=== PATIENT | male | born 1995 | race Caucasian/White ===

== ENCOUNTER 2020-08-19 17:28 | Outpatient (REF) | payer OTHER, SELFPAY | END 2020-08-19 17:29 | disposition home or self-care (01) | LOC: HO.LAB 17:28 | PROVIDERS: Visit Provider Internal Medicine | DX: Z20.828 Contact with and (suspected) exposure to other viral communicable diseases (principal) | CPT/HCPCS: C9803; U0003 ==

== ENCOUNTER 2021-04-05 22:13 | Outpatient (REF) | payer OTHER, SELFPAY ==
[2021-04-05 23:11] LABS: COVID-19 Test Negative (Negative)
== END 2021-04-05 22:14 | disposition home or self-care (01) ==
LOC: HO.LAB 22:13
PROVIDERS: Visit Provider Internal Medicine
DX: Z20.822 Contact with and (suspected) exposure to COVID-19 (principal)
CPT/HCPCS: 36415; 87635

== ENCOUNTER 2021-04-11 19:42 | Outpatient (REF) | payer OTHER, SELFPAY ==
[2021-04-11 22:12] LABS: COVID-19 Test Negative (Negative)
== END 2021-04-11 19:43 | disposition home or self-care (01) ==
LOC: HO.LAB 19:42
PROVIDERS: Visit Provider Internal Medicine
DX: Z20.822 Contact with and (suspected) exposure to COVID-19 (principal)
CPT/HCPCS: 36415; 87635

== ENCOUNTER 2021-08-16 15:18 | Outpatient (REF) | payer OTHER, SELFPAY ==
[2021-08-16 16:07] LABS: COVID-19 Test Negative (Negative)
== END 2021-08-16 15:19 | disposition home or self-care (01) ==
LOC: HO.LAB 15:18
PROVIDERS: Visit Provider Internal Medicine
DX: Z20.822 Contact with and (suspected) exposure to COVID-19 (principal)
CPT/HCPCS: 36415; 87635; C9803

== ENCOUNTER 2025-05-18 14:01 | Outpatient (REF) | payer OTHER, SELFPAY ==
--- NOTE | ~2025-05-18 | XR_ITS ---
EXAMINATION: XR SHOULDER, LEFT CLINICAL INFORMATION: M25.512 - Pain in left shoulder COMPARISON: None available. TECHNIQUE: AP external rotation, Grashey, scapular Y, and axillary views of the left shoulder. FINDINGS: No acute cortical disruption or malalignment. No gross soft tissue calcification. There is a 5 mm calcification at the lesser tuberosity of the humerus. XR/XR shoulder LT min 2V IMPRESSION: No acute fracture or dislocation. Probable bony island, left humerus. Electronically signed by: Stoney Posadas MD 05/18/2025 02:34 PM EDT
== END 2025-05-18 14:02 | disposition home or self-care (01) ==
LOC: HO.XRAY 14:01
PROVIDERS: Visit Provider Physician Assistant Medical
DX: M25.512 Pain in left shoulder (principal); M25.612 Stiffness of left shoulder, not elsewhere classified; S49.92XA Unspecified injury of left shoulder and upper arm, initial encounter
CPT/HCPCS: 73030

== ENCOUNTER → 2025-05-18 14:07 | Outpatient (BNV) | payer OTHER, SELFPAY | PROVIDERS: Visit Provider Radiology Diagnostic Radiology | DX: M25.512 Pain in left shoulder (principal) | CPT/HCPCS: 73030 ==

== ENCOUNTER 2025-05-21 12:06 | Outpatient (REF) | payer OTHER, SELFPAY ==
[2025-05-21 13:28] LABS: MANUAL DIFF FLAG NO
[2025-05-21 13:37] LABS: Hematocrit 46.5 % (42.0-52.0); Hemoglobin 15.9 g/dl (14.0-18.0); Imm Gran Abs Auto 0.01 X10*3/uL (0.00-0.03); Imm Gran Pct Auto 0.2 % (0.0-0.4); Lymphocytes Absolute Auto 1.7 X10*3/uL (1.2-4.9); Mean Corpuscular HGB Conc 34.2 g/dl (31.0-36.0); Mean Corpuscular Hemoglobin 30.6 pg (27.0-33.0); Mean Corpuscular Volume 89.4 fL (80.0-98.0); NRBC Abs Auto 0.000 X10*3/uL (0.0-0.012); NRBC Pct Auto 0.0 /100WBC (0.0-0.2); Platelet Count 168 X10*3/uL (160-400); Red Blood Count 5.20 X10*6/uL (4.60-5.80); White Blood Count 4.3 X10*3/uL (4.8-10.8)
[2025-05-21 13:58] LABS: Total Hemoglobin (HGBA1C) 4149.7549 umol/L
[2025-05-21 14:19] LABS: Alanine Aminotransferase 78 U/L (0-40); Albumin Level 5.2 g/dL (3.5-5.0); Alkaline Phosphatase 61 U/L (39-117); Anion Gap 15 (12-20); Aspartate Amino Transferase 40 U/L (5-37); Blood Urea Nitrogen 13 mg/dL (9-16); Calcium 9.7 mg/dL (8.4-10.2); Carbon Dioxide 27 mmol/L (22-29); Chloride 103 mmol/L (96-108); Cholesterol 206 mg/dL (<200); Estimated Glomerular Filt Rate > 60; HDL Cholesterol 48 mg/dL (>40); Magnesium 2.1 mg/dL (1.6-2.6); Potassium 3.7 mmol/L (3.3-5.1); Sodium 141 mmol/L (135-145); Total Protein 7.7 g/dL (6.5-8.0); Triglycerides 90 mg/dL (<150)
[2025-05-21 14:34] LABS: PSA,Total (Free>4and<10) 0.79 ng/mL (0.00-4.00)
[2025-05-21 14:47] LABS: Folate 10.9 ng/mL (> or = 4.0); Vitamin B12 360 pg/mL (200-900)
[2025-05-27 16:53] LABS: Testosterone, Free 88.6 pg/mL (35.0-155.0)
== END 2025-05-21 12:07 | disposition home or self-care (01) ==
LOC: HO.HMGCLDS 12:06
PROVIDERS: PCP Physician Assistant Medical; Visit Provider Physician Assistant Medical
DX: Z12.5 Encounter for screening for malignant neoplasm of prostate (principal); Z00.00 Encounter for general adult medical examination without abnormal findings; S43.402A Unspecified sprain of left shoulder joint, initial encounter; S46.009A Unspecified injury of muscle(s) and tendon(s) of the rotator cuff of unspecified shoulder, initial encounter; Y99.0 Civilian activity done for income or pay
CPT/HCPCS: 36415; 80053; 80061; 80076; 82248; 82306; 82607; 82627; 82642; 82746; 83036; 83735; 84153; 84402; 84403; 85025; 86140; 96127

== ENCOUNTER 2025-05-21 12:44 | Outpatient (AMB) | payer OTHER, SELFPAY ==
[2025-05-21 12:53] VITALS: BP 135/76; PULSE 73; RESP 16; TEMP 37; O2SAT 99; BMI 25.9
--- NOTE | 2025-05-21 12:53 | MHC.PC.OV ---
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 Accompanied by: Self / Same As Patient Allergies vancomycin Allergy (Mild, Verified 05/21/25 16:58) Hives Medication List - Last Reconciled 05/21/25 by Krystal Ugalde PA-C albuterol sulfate 90 mcg/actuation 2 puffs inhalation Q6H PRN Tobacco use date assessed: 10/03/21 Dental Screening Dental Screen Date: 05/21/25 Did you have a dental problem in the last 6 months where you did not have access to dental care?: No Was dental information given to patient?: Patient has dentist HPI Establish Care HPI Details The patient is a 29-year-old male presenting with left shoulder pain due to a work-related injury. The injury occurred on May 17 while the patient was pulling a hose and experienced a tweak in the left shoulder. The patient continued working, which resulted in a re-tweak of the shoulder while packing the hose. Since the incident, the patient reports decreased strength in the left arm, inability to lift weights, and a sensation of impingement in the shoulder area. The patient also experiences intermittent numbness and weakness in the arm, with pain rated at 8 to 10 out of 10 during episodes of impingement. The patient describes a sensation of swelling and discomfort, particularly when attempting to move the shoulder. Claim number [id number] Incident number [id number] Social History - Employment: [employer] [facility] Medical History (Updated 05/21/25 @ 17:02 by Krystal Ugalde PA-C) Rotator cuff injury Sprain of left shoulder Injury of left shoulder Decreased range of motion of left shoulder Work related injury Left shoulder pain Asthma Generalized anxiety disorder Surgical History History of hand surgery Family History Mother Diabetes Father Heart problem Social History Housing: House Alcohol intake: current Alcohol intake frequency: does not drink Patient Tobacco Use Status: Never used Tobacco e-Cigarette/Vaping Use: Never Used Second Hand Smoke Exposure: No service: No Current occupational status: employed Cognitive needs: No Hearing needs: No Vision needs: Yes (glasses) Questionnaire PHQ-9 Over the last 2 weeks, how often have you been bothered by any of the following problems? 1. Little interest or pleasure in doing things: not at all 2. Feeling down, depressed, or hopeless: not at all 3. Trouble falling or staying asleep, or sleeping too much: not at all 4. Feeling tired or having little energy: not at all 5. Poor appetite or overeating: not at all 6. Feeling bad about yourself - or that you are a failure or have let yourself or your family down: not at all 7. Trouble concentrating on things, such as reading the newspaper or watching television: not at all 8. Moving or speaking so slowly that other people could have noticed. Or the opposite - being so fidgety or restless that you have been moving around a lot more than usual: not at all 9. Thoughts that you would be better off or of hurting yourself in some way: not at all Total score: 0 Depression Screening Interpretation: Negative Depression Screening Done: Yes Source: Developed by Drs. Sajan Wade, Anne March, Guilherme Lundberg and colleagues, with an educational hollie from [employer]. Thrive Questionnaire Date Thrive assessed: 09/23/24 I am a: Patient What is your living situation today?: I have a steady place to live Within the past 12 months, did the food you bought not last and you didn't have the money to get more?: Never true Within the past 12 months, did you worry whether your food would run out before you got money to buy more?: Never true Do you have trouble paying for medicines?: No Do you have trouble getting transportation to medical appointments?: No Do you have trouble paying your heating and electricity bill?: No Do you have trouble taking care of your child, family member or friend?: No Do you have trouble with day-to-day activities such as bathing, preparing meals, shopping, managing finances, etc.?: No Are you currently unemployed and looking for a job?: No Are you interested in more education?: No Please select the resources that you would like help with: None Currently or been in a relationship where the following occur: No concerns reported THRIVE Score: 0 AUDIT C Alcohol Use Questionnaire (AUDIT-C) 1. How often do you have a drink containing alcohol?: Never 3. How often do you have six or more drinks on one occasion?: Never Total Score: 0 Score Reviewed/Action Taken: No RAMONE-7 AMB Questionnaire RAMONE-7 Date RAMONE - 7 assessed: 05/21/25 Feeling nervous, anxious, or on edge: 0 = Not at all Not being able to stop or control worryin = Not at all Worrying too much about different things: 0 = Not at all Trouble relaxin = Not at all Being so restless that it is hard to sit still: 0 = Not at all Becoming easily annoyed or irritable: 0 = Not at all Feeling afraid as if something awful might happen: 0 = Not at all Total RAMONE-7 score (0-4 normal; 5-9 mild; 10-14 moderate; 15-21 severe): 0 Source: Developed by Drs. Sajan Wade, Anne March, Guilherme Lundberg and colleagues, with an educational hollie from [employer]. RAMONE-7 Assessment Billing RAMONE-7 Assessment Tool: RAMONE-7 Assessment 77785 Review of Systems Const Details: - Musculoskeletal: Reports decreased strength in left arm, inability to lift weights, sensation of impingement, intermittent numbness, and weakness. Denies dropping objects. - Neurological: Reports intermittent numbness in left arm. Denies dropping objects. All systems reviewed & are unremarkable except as noted in HPI and below Physical exam (Primary Care) Vital Signs: Last Vital Signs Temp 98.6 F 05/21/25 12:53 Pulse 73 05/21/25 12:53 Resp 16 05/21/25 12:53 BP 135/76 05/21/25 12:53 Pulse Ox 99 05/21/25 12:53 Oxygen Delivery Method Room Air 05/21/25 12:53 Care Plan Goal for BP management: <140/90 BMI result Body Mass Index 25.9 BMI Assessment/Plan discussion: High BMI High, discussed plan: lifestyle, weight reduction, dietary, physical activity, alcohol moderation and other Tobacco/Smoking Status: Tobacco use Status Tobacco use date assessed 10/03/21 05/21/25 13:02 Patient Tobacco Use Status Never used Tobacco 05/21/25 13:02 e-Cigarette/Vaping Use Never Used 05/21/25 13:02 PHQ-9: PHQ-9 Score PHQ-9: Total score 0 05/21/25 13:02 Depression Screening Interpretation: Negative Thrive Assessment: Date of Thrive Assessment Date Thrive assessed 09/23/24 05/21/25 13:02 Currently or been in a relationship where the following occur: No concerns reported Const Other: Appearance: Alert. Oriented X3. No acute distress. Head: Normal external exam. Normocephalic. Atraumatic. Eyes: Pupils are equal, round, and reactive to light. Extraocular movements intact. Conjunctiva and sclera normal. Eyelids normal. Throat: Pharynx normal. Uvula midline. Moist mucous membranes. Neck: Normal inspection. Neck supple. Full range of motion. Cardiovascular: Normal heart rate and rhythm. Heart sound normal. No murmurs noted. Pulses normal throughout. Respiratory: No respiratory distress. Painless inspiration. Breath sounds normal. No wheezes/rales/rhonchi noted. Chest nontender. No accessory muscle usage noted or decreased air movement noted. Back: Full range of motion noted. Skin: Skin warm and dry. Normal skin color. Normal skin turgor. No rashes/lesions/lacerations noted. Extremities: Decreased range of motion to the left AC joint. Left shoulder pain with decreased strength and sensation of swelling. There is no pitting edema. Normal pulses. Normal capillary refill. Right extremities exhibit normal range of motion. All other extremities other than left shoulder joint exhibit normal range of motion and nontender. Neuro: Oriented X 3. Results Reviewed Results Reviewed: - Imaging: X-ray of left shoulder on 05/18/2025 showed no acute fracture or dislocation, probable bone island in left humerus. Coding Level of Care Code New Pt Level 4 (56213) Complex EM visit Add On G2211 Diagnoses Work related injury Y99.0 Sprain of left shoulder S43.402A Rotator cuff injury S46.009A Additional Codes RAMONE-7 Assessment Billing - RAMONE-7 Assessment Tool: RAMONE-7 Assessment 33085 ([id number]) Assessment & Plan Assessment & Plan (1) Work related injury: Code(s): Y99.0 - Civilian activity done for income or pay Category: Medical (2) Sprain of left shoulder: Code(s): S43.402A - Unspecified sprain of left shoulder joint, initial encounter Category: Medical Plan: The patient will be scheduled for an MRI to further evaluate the shoulder injury. Physical therapy will be initiated to aid in recovery, and an orthopedic follow-up is planned. The patient is advised to remain out of work with full restrictions until the MRI and orthopedic evaluation are completed, estimated to be at least three months. (3) Rotator cuff injury: Code(s): S46.009A - Unspecified injury of muscle(s) and tendon(s) of the rotator cuff of unspecified shoulder, initial encounter Category: Medical Plan: The patient will undergo an MRI to assess the extent of the rotator cuff injury. Physical therapy is recommended to improve shoulder function, and an orthopedic consultation is scheduled. The patient is to remain off work with full restrictions pending further evaluation and treatment. Plan Plan Patient was informed and verbally consented to the use of an ambient scribe for clinic note documentation during this visit. 1. Left Shoulder Sprain The patient will be scheduled for an MRI to further evaluate the shoulder injury. Physical therapy will be initiated to aid in recovery, and an orthopedic follow-up is planned. The patient is advised to remain out of work with full restrictions until the MRI and orthopedic evaluation are completed, estimated to be at least three months. 2. Rotator Cuff Injury The patient will undergo an MRI to assess the extent of the rotator cuff injury. Physical therapy is recommended to improve shoulder function, and an orthopedic consultation is scheduled. The patient is to remain off work with full restrictions pending further evaluation and treatment. 3. Probable Bone Island In Left Humerus The bone island noted on the X-ray will be monitored, and further evaluation will be conducted if necessary. I discussed with the patient the likely diagnosis of a left shoulder sprain and potential rotator cuff injury. We reviewed the plan for an MRI, physical therapy, and orthopedic follow-up. The patient was informed about the need to remain out of work with full restrictions until further evaluation, which is expected to take at least three months. Orders: Orders Comprehensive [place]vell. Panel Fast Today Z00.00 - Encounter for general adult medical examination without abnormal findings Lipid Panel Today Z00.00 - Encounter for general adult medical examination without abnormal findings Vitamin B12 and Folate Today Z00.00 - Encounter for general adult medical examination without abnormal findings Vitamin D 25-OH Total Today Z00.00 - Encounter for general adult medical examination without abnormal findings DHEA Sulfate Today Z00.00 - Encounter for general adult medical examination without abnormal findings MR shoulder LT wo con Today M25.512 - Pain in left shoulder, M25.612 - Stiffness of left shoulder, not elsewhere classified, S49.92XA - Unspecified injury of left shoulder and upper arm, initial encounter, Y99.0 - Civilian activity done for income or pay XR shoulder LT min 2V 05/18/25 M25.512 - Pain in left shoulder, M25.612 - Stiffness of left shoulder, not elsewhere classified, S49.92XA - Unspecified injury of left shoulder and upper arm, initial encounter, Y99.0 - Civilian activity done for income or pay C Reactive Protein Today Z00.00 - Encounter for general adult medical examination without abnormal findings Complete Blood Count Auto Diff Today Z00.00 - Encounter for general adult medical examination without abnormal findings Hemoglobin A1c Today Z00.00 - Encounter for general adult medical examination without abnormal findings Liver Panel Today Z00.00 - Encounter for general adult medical examination without abnormal findings Magnesium Today Z00.00 - Encounter for general adult medical examination without abnormal findings Testosterone, Free/Total Today Z00.00 - Encounter for general adult medical examination without abnormal findings Dihydrotestosterone Today Z00.00 - Encounter for general adult medical examination without abnormal findings PSA,Total (Free>4and<10) Today Z00.00 - Encounter for general adult medical examination without abnormal findings Referrals Orthopedics Referral M25.512 - Pain in left shoulder, M25.612 - Stiffness of left shoulder, not elsewhere classified, S49.92XA - Unspecified injury of left shoulder and upper arm, initial encounter, Y99.0 - Civilian activity done for income or pay Patient Instructions: - Schedule and attend MRI appointment as directed. - Begin physical therapy sessions as recommended. 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 - Remain out of work with full restrictions until cleared by healthcare providers.
== END 2025-05-21 14:53 | disposition home or self-care (01) ==
LOC: HO.HMCSH 12:44
PROVIDERS: PCP Physician Assistant Medical; Visit Provider Physician Assistant Medical
DX: S43.402A Unspecified sprain of left shoulder joint, initial encounter (principal); S46.002A Unspecified injury of muscle(s) and tendon(s) of the rotator cuff of left shoulder, initial encounter

== ENCOUNTER → 2025-06-09 14:14 | Outpatient (BNV) | payer OTHER, SELFPAY | PROVIDERS: PCP Physician Assistant Medical; Visit Provider Radiology Diagnostic Radiology | DX: M75.32 Calcific tendinitis of left shoulder (principal); M75.112 Incomplete rotator cuff tear or rupture of left shoulder, not specified as traumatic | CPT/HCPCS: 73221 ==

== ENCOUNTER 2025-06-09 14:19 | Outpatient (REF) | payer OTHER, SELFPAY ==
--- NOTE | ~2025-06-09 | MR_ITS ---
EXAMINATION: MRI Shoulder without contrast, left TECHNIQUE: Multiplanar multisequence MR imaging through an upper extremity joint without contrast. INDICATION: Left shoulder pain and stiffness, decreased range of motion, weakness, numbness, pulling injury 05/17/2025 PRIOR: X-ray 05/18/2025 FINDINGS: Rotator Cuff: 11 mm low signal focus is present within lateral inferior infraspinatus tendon with faint peripheral edema consistent with hydroxyapatite crystal deposition. There is a short intrasubstance tear in super space tendon at the footprint not extending to the deep bursal surface and involving less than half the tendon thickness (coronal T2 fat-sat image 13). Labrum: Labrum is intact Long biceps tendon: The long biceps tendon is intact and not displaced from the groove. Acromioclavicular joint: AC joint is not degenerated and intact. Acromial morphology is mildly curved, type II. There is no subacromial subdeltoid effusion, though there is trace fluid in the bursa. Axillary pouch: The axillary pouch is intact. Articular cartilage: There are no articular cartilage defects. Bones/Marrow: Mild focal reactive marrow signal is present in greater tuberosity adjacent the intrasubstance tear within supraspinatus tendon. Soft tissues: Subtle edema is present throughout teres minor muscle and mild fatty streaking. There is no quadrilateral space mass or abnormality. MR/MR shoulder LT wo con IMPRESSION: Infraspinatus calcific tendinitis. Subtle teres minor muscle edema and mild fatty streaking is consistent with viral neuritis or quadrilateral space syndrome. This is often symptomatic. There is a small focal linear intrasubstance tear at the supraspinatus footprint involving less than half the tendon thickness. Electronically signed by: Marco Agrawal MD 06/09/2025 03:06 PM EDT
[2025-06-09 16:29] LABS: Appearance Urine Clear; Glucose Urine UA Negative (Negative); PH 7.0 (5.0-9.0); Specific Gravity - Urine <= 1.005 (1.005-1.025)
[2025-06-10 06:20] LABS: HBS Num1 > 1000.00 mIU/mL (0-7.99); HBc Num1 0.04 S/CO (0.00-0.79); HBsAGNum1 0.40 S/CO (0.00-0.99); HIV Num 1 0.05 S/CO (0.00-0.99); Hepatitis A Antibody IgM 0.14 Index (0-0.79); Hepatitis B Surface Antigen Negative (Negative); ~HepC Num1 0.07 S/CO (0.00-0.79); ~Hepatitis A Antibody IgM Nonreactive (Nonreactive); ~Hepatitis B Surface Antibody REACTIVE (Nonreactive); ~Hepatitis C Antibody Nonreactive (Nonreactive)
[2025-06-10 10:01] LABS: CT PCR Urine NOT DETECTED (Not Detect.); NG PCR Urine NOT DETECTED (Not Detect.)
== END 2025-06-09 14:20 | disposition home or self-care (01) ==
LOC: HO.MRI 14:19
PROVIDERS: PCP Physician Assistant Medical; Visit Provider Physician Assistant Medical
DX: M25.612 Stiffness of left shoulder, not elsewhere classified (principal); S49.92XA Unspecified injury of left shoulder and upper arm, initial encounter; M25.512 Pain in left shoulder; Z00.00 Encounter for general adult medical examination without abnormal findings
CPT/HCPCS: 73221; 81003; 86592; 86695; 86696; 86704; 86706; 86709; 86803; 87340; 87389; 87491; 87591

== ENCOUNTER 2025-06-14 15:35 | Outpatient (REF) | payer OTHER, SELFPAY ==
[2025-06-16 03:33] LABS: Trichomonas vag. RNA Ur Male NOT DETECTED (NOT DETECTED)
== END 2025-06-14 15:36 | disposition home or self-care (01) ==
LOC: HO.LAB 15:35
PROVIDERS: PCP Physician Assistant Medical; Visit Provider Physician Assistant Medical
DX: Z00.00 Encounter for general adult medical examination without abnormal findings (principal)
CPT/HCPCS: 36415; 86695; 86696; 87661

== ENCOUNTER 2025-06-15 13:14 | Outpatient (REF) | payer OTHER, SELFPAY ==
[2025-06-16 02:35] LABS: CT PCR Urine NOT DETECTED (Not Detect.); NG PCR Urine NOT DETECTED (Not Detect.)
== END 2025-06-15 13:15 | disposition home or self-care (01) ==
LOC: HO.HMGCLDS 13:14
PROVIDERS: PCP Physician Assistant Medical; Visit Provider Physician Assistant Medical
DX: Z00.00 Encounter for general adult medical examination without abnormal findings (principal); Z11.3 Encounter for screening for infections with a predominantly sexual mode of transmission; Z11.8 Encounter for screening for other infectious and parasitic diseases
CPT/HCPCS: 87491; 87591

== ENCOUNTER 2025-06-21 11:24 | Outpatient (REF) | payer OTHER, SELFPAY ==
[2025-06-22 05:14] LABS: Syphilis Screen Nonreactive (Nonreactive)
[2025-06-22 05:29] LABS: HIV Num 1 0.04 S/CO (0.00-0.99)
== END 2025-06-21 11:25 | disposition home or self-care (01) ==
LOC: HO.HMGCLDS 11:24
PROVIDERS: PCP Physician Assistant Medical; Visit Provider Physician Assistant Medical
DX: Z00.00 Encounter for general adult medical examination without abnormal findings (principal); Z11.4 Encounter for screening for human immunodeficiency virus [HIV]; J02.9 Acute pharyngitis, unspecified
CPT/HCPCS: 36415; 86308; 86780; 87389

== ENCOUNTER 2025-06-23 13:52 | Outpatient (AMB) | payer OTHER, SELFPAY ==
[2025-06-23 13:54] VITALS: BP 119/58; PULSE 80; RESP 14; TEMP 36.5; O2SAT 98; BMI 25.6
--- NOTE | 2025-06-23 13:54 | A.OFFPC_ITS ---
Vital Signs 06/23/25 13:54 Height 6 ft 1 in Weight 194 lb BMI 25.6 BP 119/58 L Blood Pressure Location Lt brachial Position Sitting Respiration 14 Pulse 80 Pulse Source Pulse Oximeter Temp 97.7 F Temp Source Temporal Artery Scan Pulse Oximetry (%) 98 Oxygen Delivery Method Room Air Intake Visit Reasons: 1 month f/u WC [employer] Required: No Accompanied by: Self / Same As Patient Allergies vancomycin Allergy (Mild, Verified 06/23/25 14:57) Hives Medication List - Last Reconciled 06/23/25 by Krystal Ugalde PA-C albuterol sulfate 90 mcg/actuation 2 puffs inhalation Q6H PRN nystatin 400,000 units (4 mL) PO Q6H Tobacco use date assessed: 06/23/25 Dental Screening Dental Screen Date: 05/21/25 HPI 1 month f/u WC HPI Details The patient is a 30-year-old male presenting for a follow-up regarding a work-related injury. 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 Initial imaging included an X-ray of the left shoulder, which showed no acute fracture or dislocation but noted a probable bony island in the left humerus. Subsequent MRI findings revealed infraspinatus calcified tendinitis, Subtle teres minor muscle edema and mild fatty streaking consistent with viral neuritis or quadrilateral space syndrome, and a small focal linear intra-substance tear at the supraspinatus footprint involving less than half the tendon thickness. The patient received a cortisone injection, which provided some relief, although tightness persists. Physical therapy was initiated at [facility], with a plan for six weeks of therapy and full work restrictions during this period. The patient reports minor pain and improved range of motion but has not resumed lifting activities. Social History - Employment: [employer] Medical History (Updated 06/23/25 @ 15:27 by Krystal Ugalde PA-C) Traumatic tear of supraspinatus tendon of left shoulder Calcifying tendinitis of left shoulder Tear of left supraspinatus tendon Encounter for preventive care Rotator cuff injury Injury of left shoulder Decreased range of motion of left shoulder Work related injury Asthma Generalized anxiety disorder Surgical History History of hand surgery Family History Mother Diabetes Father Heart problem Social History Housing: House Alcohol intake: current Alcohol intake frequency: does not drink Patient Tobacco Use Status: Never used Tobacco e-Cigarette/Vaping Use: Never Used Second Hand Smoke Exposure: No service: No Current occupational status: employed Cognitive needs: No Hearing needs: No Vision needs: Yes (glasses) Questionnaire PHQ-9 Over the last 2 weeks, how often have you been bothered by any of the following problems? 1. Little interest or pleasure in doing things: not at all 2. Feeling down, depressed, or hopeless: not at all 3. Trouble falling or staying asleep, or sleeping too much: not at all 4. Feeling tired or having little energy: not at all 5. Poor appetite or overeating: not at all 6. Feeling bad about yourself - or that you are a failure or have let yourself or your family down: not at all 7. Trouble concentrating on things, such as reading the newspaper or watching television: not at all 8. Moving or speaking so slowly that other people could have noticed. Or the opposite - being so fidgety or restless that you have been moving around a lot more than usual: not at all 9. Thoughts that you would be better off or of hurting yourself in some way: not at all Total score: 0 Depression Screening Interpretation: Negative Depression Screening Done: Yes 43702 - PHQ-9 Billing: Yes Source: Developed by Drs. Sajan Wade, Anne March, Guilherme Lundberg and colleagues, with an educational hollie from [employer]. Thrive Questionnaire Date Thrive assessed: 05/21/25 I am a: Patient What is your living situation today?: I have a steady place to live Within the past 12 months, did the food you bought not last and you didn't have the money to get more?: Never true Within the past 12 months, did you worry whether your food would run out before you got money to buy more?: Never true Do you have trouble paying for medicines?: No Do you have trouble getting transportation to medical appointments?: No Do you have trouble paying your heating and electricity bill?: No Do you have trouble taking care of your child, family member or friend?: No Do you have trouble with day-to-day activities such as bathing, preparing meals, shopping, managing finances, etc.?: No Are you currently unemployed and looking for a job?: No Are you interested in more education?: No Please select the resources that you would like help with: None Currently or been in a relationship where the following occur: No concerns reported THRIVE Score: 0 AUDIT C Alcohol Use Questionnaire (AUDIT-C) 1. How often do you have a drink containing alcohol?: Never 3. How often do you have six or more drinks on one occasion?: Never Total Score: 0 Score Reviewed/Action Taken: No RAMONE-7 AMB Questionnaire RAMONE-7 Date RAMONE - 7 assessed: 05/21/25 Feeling nervous, anxious, or on edge: 0 = Not at all Not being able to stop or control worryin = Not at all Worrying too much about different things: 0 = Not at all Trouble relaxin = Not at all Being so restless that it is hard to sit still: 0 = Not at all Becoming easily annoyed or irritable: 0 = Not at all Feeling afraid as if something awful might happen: 0 = Not at all Total RAMONE-7 score (0-4 normal; 5-9 mild; 10-14 moderate; 15-21 severe): 0 Source: Developed by Drs. Sajan Wade, Anne March, Guilherme Lundberg and colleagues, with an educational hollie from [employer]. RAMONE-7 Assessment Billing RAMONE-7 Assessment Tool: RAMONE-7 Assessment 48061 Review of Systems Const Details: - Musculoskeletal: Reports minor pain and tightness in the left shoulder, improved range of motion, not lifting yet. All systems reviewed & are unremarkable except as noted in HPI and below Physical exam (Primary Care) Vital Signs: Last Vital Signs Temp 97.7 F 06/23/25 13:54 Pulse 80 06/23/25 13:54 Resp 14 06/23/25 13:54 BP 119/58 L 06/23/25 13:54 Pulse Ox 98 06/23/25 13:54 Oxygen Delivery Method Room Air 06/23/25 13:54 Care Plan Goal for BP management: <140/90 at Goal BMI result Body Mass Index 25.6 BMI Assessment/Plan discussion: High BMI High, discussed plan: lifestyle, weight reduction, dietary, physical activity, alcohol moderation and other Tobacco/Smoking Status: Tobacco use Status Tobacco use date assessed 06/23/25 06/23/25 14:01 Patient Tobacco Use Status Never used Tobacco 06/23/25 14:01 e-Cigarette/Vaping Use Never Used 06/23/25 14:01 PHQ-9: PHQ-9 Score PHQ-9: Total score 0 06/23/25 14:01 Depression Screening Interpretation: Negative Thrive Assessment: Date of Thrive Assessment Date Thrive assessed 05/21/25 06/23/25 14:01 Currently or been in a relationship where the following occur: No concerns reported Const Other: Appearance: Alert. Oriented X3. No acute distress. Head: Normal external exam. Normocephalic. Atraumatic. Eyes: Pupils are equal, round, and reactive to light. Extraocular movements intact. Conjunctiva and sclera normal. Eyelids normal. Throat: Pharynx normal. Uvula midline. Moist mucous membranes. Neck: Normal inspection. Neck supple. Full range of motion. Cardiovascular: Normal heart rate and rhythm. Respiratory: No respiratory distress. Painless inspiration. Back: Full range of motion noted. Skin: Skin warm and dry. Normal skin color. Normal skin turgor. No rashes/lesions/lacerations noted. Extremities: Left shoulder shows signs of infraspinatus calcified tendinitis and a small focal linear intra-substance tear at the supraspinatus footprint involving less than half the tendon thickness. Mild tightness noted, but movement is improving when compared to prior visit. There is no obvious weakness. No obvious deformities. Patient has full range of motion to all other extremities and nontender to all other extremities other than the left shoulder. Neuro: Oriented X 3. No motor deficit. No sensory deficit. Reflexes normal. Results Reviewed Results Reviewed: - Imaging: X-ray of the left shoulder showed no acute fracture or dislocation, probable bony island in the left humerus. - Imaging: MRI of the left shoulder showed infraspinatus calcified tendinitis, subtle transminor muscle edema, mild fatty streaking consistent with viral neuritis or quadrilateral space syndrome, and a small focal linear intra- substance tear at the supraspinatus footprint involving less than half the tendon thickness. 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 X-ray was obtained of left shoulder which revealed probable bony island in the left humerus otherwise no acute fractures or dislocation therefore subsequent MRI was ordered the left shoulder. MRI revealed infraspinatus calcified tendonitis, and partial tear of supraspinatus. Patient has seen orthopedic and received a cortisone injection has improving pain and improving range of motion. He is currently in physical therapy. He will return in 4 weeks for further evaluation and management. He will stay out of work for an additional 6 weeks until he completes physical therapy and we will reassess at that time. Patient will also continue following up with Orthopedics. (2) Calcifying tendinitis of left shoulder: Code(s): M75.32 - Calcific tendinitis of left shoulder Category: Medical Plan: Condition is improving and stable will continue to monitor. (3) Traumatic tear of supraspinatus tendon of left shoulder: Code(s): S46.812A - Strain of other muscles, fascia and tendons at shoulder and upper arm level, left arm, initial encounter Category: Medical Plan: Condition is improving and stable will continue to monitor. Plan Plan Patient was informed and verbally consented to the use of an ambient scribe for clinic note documentation during this visit. 1. Infraspinatus Calcified Tendinitis The patient is undergoing physical therapy for six weeks to address the inf raspinatus calcified tendinitis. A cortisone injection was administered, providing some relief, and the patient is currently on full work restrictions. 2. Quadrilateral Space Syndrome The MRI findings suggest quadrilateral space syndrome, and the patient is receiving physical therapy to alleviate symptoms. 3. Supraspinatus Tendon Tear The small focal linear intra-substance tear at the supraspinatus footprint is being managed with physical therapy and activity modification. During the visit, we discussed the MRI findings and the current treatment plan, which includes physical therapy and activity modification. The patient was informed about the importance of adhering to the therapy schedule and maintaining work restrictions to facilitate recovery. Patient Instructions: - Continue physical therapy as scheduled for six weeks. - Adhere to full work restrictions until cleared by the healthcare provider. - Follow up with the healthcare provider after completing physical therapy.
== END 2025-06-23 14:40 | disposition home or self-care (01) ==
LOC: HO.HMCSH 13:52
PROVIDERS: PCP Physician Assistant Medical; Visit Provider Physician Assistant Medical
DX: S46.812A Strain of other muscles, fascia and tendons at shoulder and upper arm level, left arm, initial encounter (principal); M75.32 Calcific tendinitis of left shoulder

== ENCOUNTER → 2025-06-23 13:52 | Outpatient (BNVA) | payer OTHER, SELFPAY | PROVIDERS: PCP Physician Assistant Medical; Visit Provider Physician Assistant Medical | DX: M75.32 Calcific tendinitis of left shoulder (principal); S46.812A Strain of other muscles, fascia and tendons at shoulder and upper arm level, left arm, initial encounter; X58.XXXA Exposure to other specified factors, initial encounter; Y93.9 Activity, unspecified; Y92.9 Unspecified place or not applicable; Y99.9 Unspecified external cause status; Z13.31 Encounter for screening for depression | CPT/HCPCS: 96127 ==

== ENCOUNTER 2025-07-01 13:02 | Outpatient (AMB) | payer OTHER, SELFPAY ==
[2025-07-01 12:56] VITALS: BP 113/56; PULSE 65; RESP 16; TEMP 36.4; O2SAT 96; BMI 25.4
--- NOTE | 2025-07-01 12:56 | MHC.PC.OV ---
Vital Signs 07/01/25 12:56 Height 6 ft 1 in Weight 192 lb 6 oz BMI 25.4 BP 113/56 L Blood Pressure Location Rt brachial Position Sitting Respiration 16 Pulse 65 Pulse Source Pulse Oximeter Temp 97.5 F Temp Source Temporal Artery Scan Pulse Oximetry (%) 96 Oxygen Delivery Method Room Air Intake Visit Reasons: Physical Stress Analyst Required: No Allergies vancomycin Allergy (Mild, Verified 07/01/25 13:52) Hives Medication List - Last Reconciled 07/01/25 by Krystal Ugalde PA-C albuterol sulfate 90 mcg/actuation 2 puffs inhalation Q6H PRN Tobacco use date assessed: 07/01/25 Dental Screening Dental Screen Date: 07/01/25 Did you have a dental visit in the last 12 months?: Yes Did you have a dental problem in the last 6 months where you did not have access to dental care?: No Was dental information given to patient?: Patient has dentist HPI Physical HPI Details The patient is a 30-year-old male presenting for a routine physical examination and evaluation of recent blood work abnormalities. The patient had a low white blood cell count of 4,300, slightly below the normal range of 4,800, which was noted during a period when he was feeling unwell. His bilirubin level was elevated at 1.1, and liver enzymes showed AST at 40 and ALT at 78, which may be related to recent Tylenol use. The patient has hypercholesterolemia, with a total cholesterol of 206 mg/dL and LDL cholesterol of 140 mg/dL, both above the recommended levels for his age. He has a family history of heart disease, as his brother experienced heart failure in his 40s and required a pacemaker. Patient had recently unprotected intercourse and was concerned for STDs. Therefore STD panel which includes syphilis, hepatitis panel, HIV, gonorrhea, chlamydia, mono screen and Trichomonas were obtained which were all negative. We repeated the HIV which was negative for a 2nd time. We repeated the gonorrhea and chlamydia which was negative for a 2nd time. 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 He has tested negative for strep at urgent Care. He has tested negative for mononucleosis. He reports his throat has improved he had a white spot on 1 of his tonsils which she was able to remove after a few weeks with a cotton tip swab today. He denies any current sore throat or other significant oral symptoms. Social History - Substance use: Recent use of Tylenol noted. 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 currently in physical therapy and being followed by [facility] Medical History (Updated 07/01/25 @ 14:13 by Krystal Ugalde PA-C) Family history of heart disease Geographical tongue Hyperlipidemia Pure hypercholesterolemia, unspecified Elevated liver enzymes Elevated bilirubin Family history of heart disease in brother Leukopenia Traumatic tear of supraspinatus tendon of left shoulder Calcifying tendinitis of left shoulder Tear of left supraspinatus tendon Encounter for preventive care Rotator cuff injury Injury of left shoulder Decreased range of motion of left shoulder Work related injury Asthma Generalized anxiety disorder Surgical History History of hand surgery Family History Mother Diabetes Father Heart problem Social History Housing: House Alcohol intake: current Alcohol intake frequency: does not drink Patient Tobacco Use Status: Never used Tobacco e-Cigarette/Vaping Use: Never Used Second Hand Smoke Exposure: No service: No Current occupational status: employed Cognitive needs: No Hearing needs: No Vision needs: No (glasses) Questionnaire PHQ-9 Over the last 2 weeks, how often have you been bothered by any of the following problems? 1. Little interest or pleasure in doing things: not at all 2. Feeling down, depressed, or hopeless: not at all 3. Trouble falling or staying asleep, or sleeping too much: not at all 4. Feeling tired or having little energy: not at all 5. Poor appetite or overeating: not at all 6. Feeling bad about yourself - or that you are a failure or have let yourself or your family down: not at all 7. Trouble concentrating on things, such as reading the newspaper or watching television: not at all 8. Moving or speaking so slowly that other people could have noticed. Or the opposite - being so fidgety or restless that you have been moving around a lot more than usual: not at all 9. Thoughts that you would be better off or of hurting yourself in some way: not at all Total score: 0 Depression Screening Interpretation: Negative Depression Screening Done: Yes 85874 - PHQ-9 Billing: Yes Source: Developed by Drs. Sajan Wade, Anne March, Guilherme Lundberg and colleagues, with an educational hollie from [employer]. Thrive Questionnaire Date Thrive assessed: 07/01/25 I am a: Patient What is your living situation today?: I have a steady place to live Within the past 12 months, did the food you bought not last and you didn't have the money to get more?: Never true Within the past 12 months, did you worry whether your food would run out before you got money to buy more?: Never true Do you have trouble paying for medicines?: No Do you have trouble getting transportation to medical appointments?: No Do you have trouble paying your heating and electricity bill?: No Do you have trouble taking care of your child, family member or friend?: No Do you have trouble with day-to-day activities such as bathing, preparing meals, shopping, managing finances, etc.?: No Are you currently unemployed and looking for a job?: No Are you interested in more education?: No Please select the resources that you would like help with: None Currently or been in a relationship where the following occur: No concerns reported THRIVE Score: 0 AUDIT C Alcohol Use Questionnaire (AUDIT-C) 1. How often do you have a drink containing alcohol?: Never 3. How often do you have six or more drinks on one occasion?: Never Total Score: 0 Score Reviewed/Action Taken: No RAMONE-7 AMB Questionnaire RAMONE-7 Date RAMONE - 7 assessed: 05/21/25 Feeling nervous, anxious, or on edge: 0 = Not at all Not being able to stop or control worryin = Not at all Worrying too much about different things: 0 = Not at all Trouble relaxin = Not at all Being so restless that it is hard to sit still: 0 = Not at all Becoming easily annoyed or irritable: 0 = Not at all Feeling afraid as if something awful might happen: 0 = Not at all Total RAMONE-7 score (0-4 normal; 5-9 mild; 10-14 moderate; 15-21 severe): 0 Source: Developed by Drs. Sajan Wade, Anne March, Guilherme Lundberg and colleagues, with an educational hollie from [employer]. RAMONE-7 Assessment Billing RAMONE-7 Assessment Tool: RAMONE-7 Assessment 61485 Review of Systems Const Details: - General: Denies feeling sick currently. - Oral: Reports geographical tongue, denies sore throat. - Genitourinary: Denies current UTI symptoms, negative urine for yeast. - Cardiovascular: Denies chest pain or palpitations. - Respiratory: Denies dyspnea or cough. All systems reviewed & are unremarkable except as noted in HPI and below Physical exam (Primary Care) Vital Signs: Last Vital Signs Temp 97.5 F 07/01/25 12:56 Pulse 65 07/01/25 12:56 Resp 16 07/01/25 12:56 BP 113/56 L 07/01/25 12:56 Pulse Ox 96 07/01/25 12:56 Oxygen Delivery Method Room Air 07/01/25 12:56 Care Plan Goal for BP management: <140/90 at Goal BMI result Body Mass Index 25.4 BMI Assessment/Plan discussion: High BMI High, discussed plan: lifestyle, weight reduction, dietary, physical activity, alcohol moderation and other Tobacco/Smoking Status: Tobacco use Status Tobacco use date assessed 07/01/25 07/01/25 13:05 Patient Tobacco Use Status Never used Tobacco 07/01/25 13:05 e-Cigarette/Vaping Use Never Used 07/01/25 13:05 PHQ-9: PHQ-9 Score PHQ-9: Total score 0 07/01/25 13:05 Depression Screening Interpretation: Negative Thrive Assessment: Date of Thrive Assessment Date Thrive assessed 07/01/25 07/01/25 13:05 Currently or been in a relationship where the following occur: No concerns reported Const Other: Appearance: Alert. Oriented X3. No acute distress. Head: Normal external exam. Normocephalic. Atraumatic. Eyes: Pupils are equal, round, and reactive to light. Extraocular movements intact. Conjunctiva and sclera normal. Eyelids normal. Ears: External auditory canal normal. Tympanic membranes normal. Throat: Pharynx normal. Uvula midline. Moist mucous membranes. Neck: Normal inspection. Neck supple. Full range of motion. No adenopathy. Thyroid Normal. No meningeal signs. No neck mass noted. Cardiovascular: Normal heart rate and rhythm. Heart sound normal. No murmurs noted. Pulses normal throughout. Respiratory: No respiratory distress. Painless inspiration. Breath sounds normal. No wheezes/rales/rhonchi noted. Chest nontender. No accessory muscle usage noted or decreased air movement noted. Abdomen: Soft and nontender. Bowel sounds normal in all 4 quadrants. No distention noted. No organomegaly noted. No visible injury noted. Back: No costovertebral angle tenderness. Full range of motion noted. Skin: Skin warm and dry. Normal skin color. Normal skin turgor. No rashes/lesions/lacerations noted. Extremities: No lower extremity edema. Extremities exhibit normal range of motion. Extremities nontender. Neuro: Oriented X 3. No motor deficit. No sensory deficit. Reflexes normal. Results Reviewed Results Reviewed: - Labs: White blood cell count at 4,300 (normal range: 4,800), elevated bilirubin at 1.1, AST at 40, ALT at 78, total cholesterol at 206 mg/dL, LDL cholesterol at 140 mg/dL. - Tests: Negative PSA, negative urine for yeast, negative for gonorrhea, chlamydia, and HIV. Coding Level of Care Code Est Pt Level 4 (20612) Est Pt Prev Care 40-64y(67945) Diagnoses Leukopenia D72.819 Elevated bilirubin R17 Elevated liver enzymes R74.8 Pure hypercholesterolemia, unspecified E78.00 Hyperlipidemia E78.5 Geographical tongue K14.1 Family history of heart disease Z82.49 Encounter for preventive care Z00.00 Additional Codes RAMONE-7 Assessment Billing - RAMONE-7 Assessment Tool: RAMONE-7 Assessment 03878 ([id number]) PHQ-9 - 88420 - PHQ-9 Billing: Yes ([id number]) Time Spent (min) 50 Assessment & Plan Assessment & Plan (1) Leukopenia: Code(s): D72.819 - Decreased white blood cell count, unspecified Category: Medical Plan: The patient will have a repeat complete blood count (CBC) to monitor the white blood cell count and assess for any changes. (2) Elevated bilirubin: Code(s): R17 - Unspecified jaundice Category: Medical Plan: The patient is advised to avoid Tylenol and alcohol to prevent further liver enzyme elevation and will have liver function tests repeated. (3) Elevated liver enzymes: Code(s): R74.8 - Abnormal levels of other serum enzymes Category: Medical Plan: The patient is advised to avoid Tylenol and alcohol to prevent further liver enzyme elevation and will have liver function tests repeated. (4) Pure hypercholesterolemia, unspecified: Code(s): E78.00 - Pure hypercholesterolemia, unspecified Category: Medical Plan: The patient is advised to modify his diet to lower cholesterol levels and will be monitored for any changes in lipid profile. (5) Hyperlipidemia: Code(s): E78.5 - Hyperlipidemia, unspecified Category: Medical Plan: The patient is advised to modify his diet to lower cholesterol levels and will be monitored for any changes in lipid profile. (6) Geographical tongue: Code(s): K14.1 - Geographic tongue Category: Medical Plan: The patient most likely with geographical tongue. The patient is reassured about the benign nature of geographical tongue and advised to monitor for any changes. (7) Family history of heart disease: Code(s): Z82.49 - Family history of ischemic heart disease and other diseases of the circulatory system Category: Medical Plan: Due to the family history of heart disease, the patient will undergo an echocardiogram and stress test to assess cardiac function. (8) Encounter for preventive care: Code(s): Z00.00 - Encounter for general adult medical examination without abnormal findings Category: Medical Plan: Patient will have repeat CBC due to last time when I sent him for blood work before his annual it appeared that he had leukopenia he also noted to have elevated liver enzymes therefore will repeat he was also noted to have elevated albumin along with elevated cholesterol and LDL. He was recently with unprotected intercourse therefore STD testing was ordered and HIV has been negative twice, hepatitis panel negative, gonorrhea and chlamydia have been negative twice, will reassess for syphilis although patient was already negative once will also reassess urine due to his partner recently had yeast infection. Although patient denies any acute symptoms at this time. Plan Plan Patient was informed and verbally consented to the use of an ambient scribe for clinic note documentation during this visit. 1. Low White Blood Cell Count The patient will have a repeat complete blood count (CBC) to monitor the white blood cell count and assess for any changes. 2. Elevated Bilirubin And Liver Enzymes The patient is advised to avoid Tylenol and alcohol to prevent further liver enzyme elevation and will have liver function tests repeated. 3. Hypercholesterolemia The patient is advised to modify his diet to lower cholesterol levels and will be monitored for any changes in lipid profile. 4. Geographical Tongue The patient is reassured about the benign nature of geographical tongue and advised to monitor for any changes. 5. Family History Of Heart Disease Due to the family history of heart disease, the patient will undergo an echocardiogram and stress test to assess cardiac function. During the visit, I discussed with the patient the importance of monitoring his white blood cell count and liver function due to recent abnormalities. We reviewed the need to avoid Tylenol and alcohol to prevent further liver issues. I also emphasized dietary changes to manage his cholesterol levels. Given his family history of heart disease, I recommended an echocardiogram and stress test to evaluate his cardiac health. We agreed to repeat the CBC, liver function tests, and thyroid function tests to monitor his health status. I reassured him about the benign nature of his geographical tongue and advised him to observe any changes. Orders: Orders Liver Panel Today Z00.00 - Encounter for general adult medical examination without abnormal findings Lyme IgG/IgM w/reflex to WB Today Z00.00 - Encounter for general adult medical examination without abnormal findings Syphilis Screen Today D72.819 - Decreased white blood cell count, unspecified CA echo transthoracic complete Today Z82.49 - Family history of ischemic heart disease and other diseases of the circulatory system NM cardiolite stress test Today Z82.49 - Family history of ischemic heart disease and other diseases of the circulatory system TSH reflex Free T4 Today Z00.00 - Encounter for general adult medical examination without abnormal findings Complete Blood Count no Diff Today Z00.00 - Encounter for general adult medical examination without abnormal findings Blood Culture X2 Today D72.819 - Decreased white blood cell count, unspecified HIV Ab/Ag Today D72.819 - Decreased white blood cell count, unspecified UA CC w/rflx Micro + Cult Today Z00.00 - Encounter for general adult medical examination without abnormal findings CA stress test Today Z82.49 - Family history of ischemic heart disease and other diseases of the circulatory system Medications: Discontinued nystatin administer 1/2 of dose in each side of the mouth Discontinued Reason: Doctor's Order 400,000 units (4 mL) PO Q6H 480 mL 1RF Swish in mouth several minutes and then swallow Patient Instructions: - Avoid Tylenol and alcohol to prevent liver enzyme elevation. - Follow a cholesterol-lowering diet. - Schedule and attend an echocardiogram and stress test. - Monitor for any changes in the appearance of the tongue. - Return for repeat blood tests as discussed.
== END 2025-07-01 13:42 | disposition home or self-care (01) ==
LOC: HO.HMCSH 13:02
PROVIDERS: PCP Physician Assistant Medical; Visit Provider Physician Assistant Medical
DX: Z00.00 Encounter for general adult medical examination without abnormal findings (principal); D72.819 Decreased white blood cell count, unspecified; R17 Unspecified jaundice; R74.8 Abnormal levels of other serum enzymes; E78.00 Pure hypercholesterolemia, unspecified; E78.5 Hyperlipidemia, unspecified; K14.1 Geographic tongue; Z82.49 Family history of ischemic heart disease and other diseases of the circulatory system

== ENCOUNTER → 2025-07-01 13:02 | Outpatient (BNVA) | payer OTHER, SELFPAY | PROVIDERS: PCP Physician Assistant Medical; Visit Provider Physician Assistant Medical | DX: Z00.00 Encounter for general adult medical examination without abnormal findings (principal); D72.819 Decreased white blood cell count, unspecified; R17 Unspecified jaundice; R74.8 Abnormal levels of other serum enzymes; E78.00 Pure hypercholesterolemia, unspecified; K14.1 Geographic tongue; Z82.49 Family history of ischemic heart disease and other diseases of the circulatory system; Z13.31 Encounter for screening for depression | CPT/HCPCS: 96127 ==

== ENCOUNTER 2025-07-07 12:34 | Outpatient (REF) | payer OTHER, SELFPAY ==
[2025-07-07 13:44] LABS: Hematocrit 48.6 % (42.0-52.0); Hemoglobin 16.2 g/dl (14.0-18.0); Mean Corpuscular HGB Conc 33.3 g/dl (31.0-36.0); Mean Corpuscular Hemoglobin 30.7 pg (27.0-33.0); Mean Corpuscular Volume 92.0 fL (80.0-98.0); NRBC Abs Auto 0.000 X10*3/uL (0.0-0.012); NRBC Pct Auto 0.0 /100WBC (0.0-0.2); Platelet Count 180 X10*3/uL (160-400); Red Blood Count 5.28 X10*6/uL (4.60-5.80); White Blood Count 5.5 X10*3/uL (4.8-10.8)
[2025-07-07 14:20] LABS: Appearance Urine Clear; Glucose Urine UA Negative (Negative); PH 6.0 (5.0-9.0); Specific Gravity - Urine 1.010 (1.005-1.025)
[2025-07-07 16:16] LABS: Alanine Aminotransferase 78 U/L (0-40); Albumin Level 5.8 g/dL (3.5-5.0); Alkaline Phosphatase 75 U/L (39-117); Aspartate Amino Transferase 32 U/L (5-37); Total Protein 8.8 g/dL (6.5-8.0)
[2025-07-08 04:17] LABS: Syphilis Screen Nonreactive (Nonreactive)
[2025-07-08 04:58] LABS: HIV Num 1 0.05 S/CO (0.00-0.99)
[2025-07-08 06:33] LABS: Lyme Abs Screen <0.90 index
== END 2025-07-07 12:35 | disposition home or self-care (01) ==
LOC: HO.LAB 12:34
PROVIDERS: PCP Physician Assistant Medical; Visit Provider Physician Assistant Medical
DX: Z00.00 Encounter for general adult medical examination without abnormal findings (principal); Z01.84 Encounter for antibody response examination; Z11.4 Encounter for screening for human immunodeficiency virus [HIV]; D72.819 Decreased white blood cell count, unspecified; Z13.29 Encounter for screening for other suspected endocrine disorder
CPT/HCPCS: 36415; 80076; 81003; 84443; 85027; 86617; 86618; 86780; 87040; 87389

== ENCOUNTER 2025-07-16 12:54 | Outpatient (REF) | payer OTHER, SELFPAY ==
[2025-07-19 13:53] LABS: CMV DNA Qn PCR NOT DETECTED Log IU/mL (NOT DETECTED)
== END 2025-07-16 12:55 | disposition home or self-care (01) ==
LOC: HO.LAB 12:54
PROVIDERS: PCP Physician Assistant Medical; Visit Provider Physician Assistant Medical
DX: Z01.84 Encounter for antibody response examination (principal); Z76.89 Persons encountering health services in other specified circumstances
CPT/HCPCS: 36415; 86308; 87497

== ENCOUNTER 2025-07-21 14:14 | Outpatient (REF) | payer OTHER, SELFPAY ==
[2025-07-22 18:39] LABS: C. Trachomatis RNA TMA, Throat NOT DETECTED (NOT DETECTED); N. gonorrhoeae RNA TMA, Throat NOT DETECTED (NOT DETECTED)
== END 2025-07-21 14:15 | disposition home or self-care (01) ==
LOC: HO.LAB 14:14
PROVIDERS: PCP Physician Assistant Medical; Visit Provider Physician Assistant Medical
DX: Z00.00 Encounter for general adult medical examination without abnormal findings (principal); M75.32 Calcific tendinitis of left shoulder; J02.9 Acute pharyngitis, unspecified; G47.00 Insomnia, unspecified; R74.8 Abnormal levels of other serum enzymes; R10.9 Unspecified abdominal pain; R17 Unspecified jaundice; S49.92XA Unspecified injury of left shoulder and upper arm, initial encounter; X58.XXXA Exposure to other specified factors, initial encounter; Y93.9 Activity, unspecified; Y92.9 Unspecified place or not applicable; Y99.0 Civilian activity done for income or pay
CPT/HCPCS: 87070; 87147; 87491; 87591; 96127

== ENCOUNTER 2025-07-21 14:14 | Outpatient (AMB) | payer OTHER, SELFPAY ==
[2025-07-21 14:16] VITALS: BP 123/68; PULSE 72; RESP 14; TEMP 36.7; O2SAT 98; BMI 25.7
--- NOTE | 2025-07-21 14:16 | A.OFFPC_ITS ---
Vital Signs 07/21/25 14:16 Height 6 ft 1 in Weight 195 lb BMI 25.7 BP 123/68 Blood Pressure Location Rt brachial Position Sitting Respiration 14 Pulse 72 Pulse Source Pulse Oximeter Temp 98.1 F Temp Source Temporal Artery Scan Pulse Oximetry (%) 98 Oxygen Delivery Method Room Air Intake Visit Reasons: 4 week follow up workers comp [employer] Required: No Accompanied by: Self / Same As Patient Allergies vancomycin Allergy (Mild, Verified 07/22/25 17:30) Hives Medication List - Last Reconciled 07/22/25 by Krystal Ugalde PA-C albuterol sulfate 90 mcg/actuation 2 puffs inhalation Q6H PRN fluconazole 150 mg PO DAILY 2 weeks Tobacco use date assessed: 07/01/25 Dental Screening Dental Screen Date: 07/01/25 HPI 4 week follow up workers comp HPI Details The patient is a 30-year-old male presenting for a follow-up visit for a worker's compensation case regarding his left shoulder. The injury occurred on May 17 when he felt pain in his left shoulder while pulling a hose, and he subsequently re-injured it while packing the hose. He has been out of work since April. An MRI of the left shoulder revealed infraspinatus calcified tendinitis, subtle teres minor muscle edema, mild fatty streaking, and a linear intra-substance tear of the supraspinatus involving less than half the tendon. He has since undergone physical therapy and has improved range of motion, but he continues to experience a sensation of impingement, decreased strength in his left arm, and pain when trying to lift 10 pounds. Initially, he also had numbness and weakness in the arm, with pain rated at 8/10 during impingement episodes. He is being followed by orthopedic at this time and they recommended physical therapy. He is currently in physical therapy and improving every week while being in physical therapy with improving range of motion, strength and pain. He has a follow-up with Orthopedics on August 24 and at that time they will decide if the patient should go back to work along with PT recommendations. The patient also reports a persistent sore throat and has been experiencing insomnia for the past four days. Previous testing for pharyngeal gonorrhea and chlamydia was negative, as were two HSV tests done on 06/09 and 06/14. He also has a history of slightly elevated liver enzymes and reports intermittent abdominal pain that feels like swelling. He has an upcoming cardiac stress test and heart ultrasound scheduled. Social History - Employment: The patient has been out o f work since April due to his shoulder injury. - Relationship Status: Reports being sin gle. - Functional Status: Notes not engaging in his usual activities. [facility] Medical History (Updated 07/22/25 @ 17:36 by Krystal Ugalde PA-C) Healthcare maintenance Sore throat Abdominal pain Encounter for assessment of STD exposure Family history of heart disease Geographical tongue Hyperlipidemia Pure hypercholesterolemia, unspecified Elevated liver enzymes Elevated bilirubin Family history of heart disease in brother Leukopenia Traumatic tear of supraspinatus tendon of left shoulder Calcifying tendinitis of left shoulder Tear of left supraspinatus tendon Encounter for preventive care Rotator cuff injury Injury of left shoulder Decreased range of motion of left shoulder Work related injury Asthma Generalized anxiety disorder Surgical History History of hand surgery Family History Mother Diabetes Father Heart problem Social History Housing: House Alcohol intake: current Alcohol intake frequency: does not drink Patient Tobacco Use Status: Never used Tobacco e-Cigarette/Vaping Use: Never Used Second Hand Smoke Exposure: No service: No Current occupational status: employed Cognitive needs: No Hearing needs: No Vision needs: No (glasses) Questionnaire PHQ-9 Over the last 2 weeks, how often have you been bothered by any of the following problems? 1. Little interest or pleasure in doing things: not at all 2. Feeling down, depressed, or hopeless: not at all 3. Trouble falling or staying asleep, or sleeping too much: not at all 4. Feeling tired or having little energy: not at all 5. Poor appetite or overeating: not at all 6. Feeling bad about yourself - or that you are a failure or have let yourself or your family down: not at all 7. Trouble concentrating on things, such as reading the newspaper or watching television: not at all 8. Moving or speaking so slowly that other people could have noticed. Or the opposite - being so fidgety or restless that you have been moving around a lot more than usual: not at all 9. Thoughts that you would be better off or of hurting yourself in some way: not at all Total score: 0 Depression Screening Interpretation: Negative Depression Screening Done: Yes 42092 - PHQ-9 Billing: Yes Source: Developed by Drs. Sajan Wade, Anne March, Guilherme Lundberg and colleagues, with an educational hollie from [employer]. Thrive Questionnaire Date Thrive assessed: 07/01/25 I am a: Patient What is your living situation today?: I have a steady place to live Within the past 12 months, did the food you bought not last and you didn't have the money to get more?: Never true Within the past 12 months, did you worry whether your food would run out before you got money to buy more?: Never true Do you have trouble paying for medicines?: No Do you have trouble getting transportation to medical appointments?: No Do you have trouble paying your heating and electricity bill?: No Do you have trouble taking care of your child, family member or friend?: No Do you have trouble with day-to-day activities such as bathing, preparing meals, shopping, managing finances, etc.?: No Are you currently unemployed and looking for a job?: No Are you interested in more education?: No Please select the resources that you would like help with: None Currently or been in a relationship where the following occur: No concerns reported THRIVE Score: 0 AUDIT C Alcohol Use Questionnaire (AUDIT-C) 1. How often do you have a drink containing alcohol?: Never 3. How often do you have six or more drinks on one occasion?: Never Total Score: 0 Score Reviewed/Action Taken: No RAMONE-7 AMB Questionnaire RAMONE-7 Date RAMONE - 7 assessed: 05/21/25 Feeling nervous, anxious, or on edge: 0 = Not at all Not being able to stop or control worryin = Not at all Worrying too much about different things: 0 = Not at all Trouble relaxin = Not at all Being so restless that it is hard to sit still: 0 = Not at all Becoming easily annoyed or irritable: 0 = Not at all Feeling afraid as if something awful might happen: 0 = Not at all Total RAMONE-7 score (0-4 normal; 5-9 mild; 10-14 moderate; 15-21 severe): 0 Source: Developed by Drs. Sajan Wade, Anne March, Guilherme Lundberg and colleagues, with an educational hollie from [employer]. RAMONE-7 Assessment Billing RAMONE-7 Assessment Tool: RAMONE-7 Assessment 69049 Review of Systems Const Details: - Constitutional: Reports fatigue and insomnia for four days. - HEENT: Reports a persistent sore throat. - Musculoskeletal: Reports persistent left shoulder impingement, decreased strength, and pain with lifting a 10-pound weight. - Neurological: Reports a history of numbness and weakness in the left arm following his injury. - Gastrointestinal: Reports intermittent abdominal pain described as a feeling of swelling. All systems reviewed & are unremarkable except as noted in HPI and below Physical exam (Primary Care) Vital Signs: Last Vital Signs Temp 98.1 F 07/21/25 14:16 Pulse 72 07/21/25 14:16 Resp 14 07/21/25 14:16 BP 123/68 07/21/25 14:16 Pulse Ox 98 07/21/25 14:16 Oxygen Delivery Method Room Air 07/21/25 14:16 Care Plan Goal for BP management: <140/90 at Goal BMI result Body Mass Index 25.7 BMI Assessment/Plan discussion: High BMI High, discussed plan: lifestyle, weight reduction, dietary, physical activity, alcohol moderation and other Tobacco/Smoking Status: Tobacco use Status Tobacco use date assessed 07/01/25 07/21/25 14:24 Patient Tobacco Use Status Never used Tobacco 07/21/25 14:24 e-Cigarette/Vaping Use Never Used 07/21/25 14:24 PHQ-9: PHQ-9 Score PHQ-9: Total score 0 07/21/25 14:24 Depression Screening Interpretation: Negative Thrive Assessment: Date of Thrive Assessment Date Thrive assessed 07/01/25 07/21/25 14:24 Currently or been in a relationship where the following occur: No concerns reported Const Other: Appearance: Alert. Oriented X3. No acute distress. Head: Normal external exam. Normocephalic. Atraumatic. Eyes: Pupils are equal, round, and reactive to light. Extraocular movements intact. Conjunctiva and sclera normal. Eyelids normal. Ears: External auditory canal normal. Tympanic membranes normal. Throat: Pharynx normal. Uvula midline. Moist mucous membranes. Throat culture ordered. Neck: Normal inspection. Neck supple. Full range of motion. No adenopathy. Thyroid Normal. No meningeal signs. No neck mass noted. Cardiovascular: Normal heart rate and rhythm. Heart sound normal. No murmurs noted. Pulses normal throughout. Respiratory: No respiratory distress. Painless inspiration. Breath sounds normal. No wheezes/rales/rhonchi noted. Chest nontender. No accessory muscle usage noted or decreased air movement noted. Abdomen: Soft and mild tenderness diffusely. Bowel sounds normal in all 4 quadrants. No distention noted. No organomegaly noted. No visible injury noted. Back: No costovertebral angle tenderness. Full range of motion noted. Skin: Skin warm and dry. Normal skin color. Normal skin turgor. No rashes/lesions/lacerations noted. Extremities: Improving strength in the left arm, patient is now lifting small less than 10 lb weights. He has improving range of motion. He has decreased pain. He has improving numbness. No joint swelling, erythema or signs of infection. Normal pulses. No cyanosis. Normal capillary refill. Otherwise all other extremities exhibit normal range of motion nontender. Neuro: Oriented X 3. No motor deficit. No sensory deficit. Reflexes normal. Results Reviewed Results Reviewed: - Imaging: An MRI of the left shoulder revealed infraspinatus calcified tendinitis, subtle teres minor muscle edema, mild fatty streaking, and a linear intra-substance tear at the supraspinatus footprint involving less than half of the tendon. - Labs: Previous throat testing for gonorrhea, chlamydia, and HSV-1 were negative. - Labs: Liver enzymes were previously noted to be slightly elevated. Coding Level of Care Code Est Pt Level 4 (88939) Complex EM visit Add On G2211 Diagnoses Work related injury Y99.0 Injury of left shoulder S49.92XA Sore throat J02.9 Elevated liver enzymes R74.8 Abdominal pain R10.9 Healthcare maintenance Z00.00 Additional Codes RAMONE-7 Assessment Billing - RAMONE-7 Assessment Tool: RAMONE-7 Assessment 67914 ([id number]) PHQ-9 - 21903 - PHQ-9 Billing: Yes ([id number]) Time Spent (min) 60 Assessment & Plan Assessment & Plan (1) Work related injury: Code(s): Y99.0 - Civilian activity done for income or pay Category: Medical Plan: Claim number [id number] Incident number [id number] 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 Despite previous physical therapy, he continues to experience impingement and pain with lifting although has improved significantly since starting physical therapy. He will continue to follow up with an transportation maintenance specialist for further management. He has a follow-up with orthopedic on August 24 and at that time they will decide if patient should go back to work along with PT recommendations. (3) Sore throat: Code(s): J02.9 - Acute pharyngitis, unspecified Category: Medical Plan: The patient complains of a persistent sore throat. Despite previous negative tests for gonorrhea, chlamydia, and HSV, a throat culture for both a regular culture and for gonorrhea and chlamydia will be sent for analysis. (4) Elevated liver enzymes: Code(s): R74.8 - Abnormal levels of other serum enzymes Category: Medical Plan: The patient has a history of slightly elevated liver enzymes and reports intermittent abdominal pain. A liver ultrasound will be ordered for further evaluation. (5) Abdominal pain: Code(s): R10.9 - Unspecified abdominal pain Category: Medical Plan: The patient has a history of slightly elevated liver enzymes and reports intermittent abdominal pain. A liver ultrasound will be ordered for further evaluation. (6) Healthcare maintenance: Code(s): Z00.00 - Encounter for general adult medical examination without abnormal findings Category: Medical Plan: The patient has upcoming appointments for a cardiac stress test and an ultrasound of the heart. Repeat testing for HIV and hepatitis may be considered in three months. Plan Plan Patient was informed and verbally consented to the use of an ambient scribe for clinic note documentation during this visit. 1. Left Shoulder Injury The patient is following up for a worker's compensation case related to a left shoulder injury sustained in April. Despite previous physical therapy, he continues to experience impingement and pain with lifting although has improved significantly since starting physical therapy. He will continue to follow up with an transportation maintenance specialist for further management. He has a follow-up with orthopedic on August 24 and at that time they will decide if patient should go back to work along with PT recommendations. 2. Pharyngitis The patient complains of a persistent sore throat. Despite previous negative tests for gonorrhea, chlamydia, and HSV, a throat culture for both a regular culture and for gonorrhea and chlamydia will be sent for analysis. 3. Elevated Liver Transaminases The patient has a history of slightly elevated liver enzymes and reports intermittent abdominal pain. A liver ultrasound will be ordered for further evaluation. 4. Health Maintenance The patient has upcoming appointments for a cardiac stress test and an ultrasound of the heart. Repeat testing for HIV and hepatitis may be considered in three months. I reviewed the patient's ongoing symptoms related to his worker's compensation case for his left shoulder injury. We discussed his persistent impingement symptoms and noted that further management will be directed by his transportation maintenance specialist. Regarding his persistent sore throat, I discussed that while prior tests including those for gonorrhea, chlamydia, and HSV were negative, we would proceed with repeating a comprehensive throat culture to be thorough. We also addressed his history of elevated liver enzymes and associated abdominal discomfort. I recommended and ordered a liver ultrasound to investigate these findings. We confirmed his upcoming cardiology appointments for a stress test and heart ultrasound. I also advised that we could consider rechecking HIV and hepatitis serologies in approximately three months. Orders: Orders Throat Culture 07/21/25 J02.9 - Acute pharyngitis, unspecified CT NG RNA TMA, Throat 07/21/25 J02.9 - Acute pharyngitis, unspecified US abdomen complete 07/21/25 R10.9 - Unspecified abdominal pain, R17 - Unspecified jaundice, R74.8 - Abnormal levels of other serum enzymes Patient Instructions: - Continue to follow up with your transportation maintenance specialist for your left shoulder injury. - We have collected a throat swab today to check for any infection causing your sore throat. - An order for a liver ultrasound has been placed to investigate your abdominal pain and lab results. Please schedule this appointment. - Please attend your scheduled cardiology appointments for a stress test and ultrasound of your heart. - We will schedule a follow-up visit as needed.
== END 2025-07-21 14:57 | disposition home or self-care (01) ==
LOC: HO.HMCSH 14:14
PROVIDERS: PCP Physician Assistant Medical; Visit Provider Physician Assistant Medical
DX: S49.92XA Unspecified injury of left shoulder and upper arm, initial encounter (principal); Y99.0 Civilian activity done for income or pay; J02.9 Acute pharyngitis, unspecified; R74.8 Abnormal levels of other serum enzymes; R10.9 Unspecified abdominal pain; Z00.00 Encounter for general adult medical examination without abnormal findings